=== PATIENT | male | born 1990 | race Hispanic/Latino ===

== ENCOUNTER 2019-03-09 13:07 | Outpatient (CLI) | payer OTHER | END 2019-03-09 13:08 | disposition home or self-care (01) | LOC: C.PAT 13:07 | DX: D48.7 Neoplasm of uncertain behavior of other specified sites (principal) ==

== ENCOUNTER 2019-03-11 08:44 | Day surgery (SDC) | payer OTHER | END 2019-03-11 15:29 | disposition home or self-care (01) | LOC: C.SDS 08:44 | DX: D48.7 Neoplasm of uncertain behavior of other specified sites (principal) ==